=== PATIENT | male | born 1945 | race Caucasian/White ===

== ENCOUNTER → 2017-07-01 | Outpatient (CLI) | payer MEDICARE, BC ==
[~2017-07-01] MED LIST: ALBUTEROL17 GM INH; ALBUTEROL20 ml INH; ALPRAZOLAM0.25 MG PO; ATENOLOL PO; BACTRIM DS TABL1 TAB PO; DULERA 200 MCG/13 GM INH; HYDRALAZINE HCL25 MG PO; HYDROCHLOROTHIA25 MG PO; HYDROCODON-ACE1 EACH PO; LEVAQUIN250 MG PO; NORVASC PO; PREDNISONE10 MG/DOSE PO; TENORETIC 100 T1 TAB PO; TENORETIC PO; WALMART PHARMACY; ZETIA PO; ZYLOPRIM100 MG PO; [UNRECOGNIZED DRUG - OTHER] PO
[2017-07-01 08:15] LABS: HEMATOCRIT 40.9 % (38.0-50.0); HEMOGLOBIN 13.4 gm/dL (13.0-16.0); MEAN CELL VOLUME 91.2 FL (83-96); MEAN CORPUSCULAR HEMOGLOBIN 29.9 PG (28-34); MEAN CORPUSCULAR HGB CONC 32.8 g/dL (30-36); MEAN PLATELET VOLUME 8.7 FL (6.5-11.5); RED BLOOD COUNT 4.49 X10e (3.90-5.60); RED CELL DISTRIBUTION WIDTH 16.3 % (11.0-15.5); WHITE BLOOD COUNT 6.7 X10e3 (4.0-10.5)
== END | disposition home or self-care (01) ==
LOC: SLAB 07:50
PROVIDERS: Internal Medicine
DX: E87.5 Hyperkalemia (principal)
CPT/HCPCS: 36415; 85027